=== PATIENT | female | born 1960 ===

== ENCOUNTER 2018-02-13 23:50 | Inpatient (IN) | payer MEDICAID ==
[2018-02-14 01:01] LABS: BASO # 0.1 K/uL (0.0-0.2); BASO % 0.9 % (0.0-2.0); EOS # 0.8 K/uL (0.0-0.7); EOS % 11.5 % (0.0-4.0); HEMOGLOBIN 12.3 g/dL (12.0-16.0); LYMPH # 2.3 K/uL (1.0-4.3); LYMPH % 32.5 % (20.0-40.0); MEAN CELL VOLUME 87.1 fl (81.0-99.0); MEAN CORPUSCULAR HEMOGLOBIN 28.7 pg (27.0-31.0); MEAN CORPUSCULAR HGB CONC 32.9 g/dL (33.0-37.0); MEAN PLATELET VOLUME 7.8 fl (7.2-11.7); MONO # 0.5 K/uL (0.0-0.8); MONO % 7.3 % (0.0-10.0); NEUT # 3.4 K/uL (1.8-7.0); NEUT % 47.8 % (50.0-75.0); RBC 4.31 Mil/uL (3.80-5.20); RED CELL DISTRIBUTION WIDTH 12.9 % (11.5-14.5)
[2018-02-14 01:11] LABS: ACETAMINOPHEN < 10.0 ug/ml (10.0-30.0); BLOOD UREA NITROGEN 9 mg/dl (7-17); CALCIUM 9.5 mg/dL (8.4-10.2); GFR AFRICAN-AMERICAN > 60; GFR NON-AFRICAN AMERICAN > 60; SALICYLATE < 1.0 mg/dl
[2018-02-14 01:14] LABS: SQUAMOUS EPITHIAL 1 /hpf (0-5); URINE BILIRUBIN NEGATIVE (NEGATIVE); URINE BLOOD NEGATIVE (NEGATIVE); URINE CLARITY CLEAR (Clear); URINE COLOR STRAW (YELLOW); URINE GLUCOSE (UA) NEG (Normal); URINE LEUKOCYTE ESTERASE NEG Leu/uL (Negative); URINE PROTEIN NEGATIVE (NEGATIVE); URINE UROBILINOGEN 0.2-1.0 mg/dL (0.2-1.0)
[2018-02-14 01:36] LABS: BARBITURATES, UR NEGATIVE (NEGATIVE); BENZODIAZEPINES, UR NEGATIVE (NEGATIVE); OPIATES, UR NEGATIVE (NEGATIVE); PHENCYCLIDINE, UR NEGATIVE (NEGATIVE)
--- NOTE | 2018-02-14 01:55 | ED PDOC ---
HPI: Psych/Substance Abuse Time Seen by Provider: 02/14/18 00:14 Chief Complaint (Nursing): Psychiatric Evaluation History Per: Patient, Family History/Exam Limitations: no limitations Onset/Duration Of Symptoms: Hrs Current Symptoms Are (Timing): Still Present Additional Complaint(s): Hx of anxiety, depression presenting with depression, family brought her to ER because she has been depressed about losing her insurance, states that she ran out of the house and was wandering the streets and that she occasionally has thoughts of suicide but none now. Family also relates that she vacillates between uncontrollable crying and uncontrollable laughter. Past Medical History Reviewed: Historical Data, Nursing Documentation, Vital Signs Vital Signs: Last Vital Signs Temp 98.2 F 02/13/18 23:55 Pulse 80 02/13/18 23:55 Resp 18 02/13/18 23:55 BP 164/90 H 02/13/18 23:55 Pulse Ox 96 02/13/18 23:55 - Medical History PMH: Anxiety, Depression - Family History Family History: States: Unknown Family Hx - Home Medications Home Medications: Ambulatory Orders Medication Instructions Recorded Unobtainable 02/14/18 - Allergies Allergies/Adverse Reactions: Allergies Allergy/AdvReac Type Severity Reaction Status Date / Time No Known Allergies Allergy Verified 02/13/18 23:53 Review of Systems ROS Statement: Except As Marked, All Systems Reviewed And Found Negative Psych: Positive for: Anxiety, Depression Physical Exam - Reviewed Nursing Documentation Reviewed: Yes Vital Signs Reviewed: Yes - Physical Exam Appears: Positive for: Well (Laughing), Non-toxic, No Acute Distress Head Exam: Positive for: ATRAUMATIC, NORMAL INSPECTION, NORMOCEPHALIC Skin: Positive for: Normal Color, Warm, DRY Eye Exam: Positive for: EOMI, Normal appearance, PERRL ENT: Positive for: Normal ENT Inspection Neck: Positive for: Normal, Painless ROM Cardiovascular/Chest: Positive for: Regular Rate, Rhythm Respiratory: Positive for: CNT, Normal Breath Sounds Gastrointestinal/Abdominal: Positive for: Normal Exam, Soft Back: Positive for: Normal Inspection Extremity: Positive for: Normal ROM Neurologic/Psych: Positive for: Alert, van driver helper II-XII, Oriented, Mood/Affect ( Inapprorpriate laughter ). Negative for: Motor/Sensory Deficits - Laboratory Results Result Diagrams: 02/14/18 00:50 02/14/18 00:50 - ECG O2 Sat by Pulse Oximetry: 96 Pulse Ox Interpretation: Normal Medical Decision Making Medical Decision Makin Patient brought in for anxiety and depression, not currently suicidal -patient with normal vitals, otherwise normal exam -will get labs, crisis 0300 Patient medically cleared Patient accepted to psych by Dr. Vasquez with dx: bipolar disorder Disposition - Clinical Impression Clinical Impression: Bipolar disorder - Disposition Disposition Time: 03:00 Condition: STABLE
[2018-02-14] MEDS ORDERED: Alum-Mag Hydrox-Simethicone Susp (30 mL) PO PRN (03:57)
[2018-02-14] MEDS ORDERED: Magnesium Hydroxide Susp 30 ml UD PO PRN (03:57)
[2018-02-14] MEDS ORDERED: DiphenhydrAMINE 50 mg/ml Inj IM PRN (03:57)
--- NOTE | 2018-02-14 04:14 | PCM.BM ---
<DeniseJo-Annbella Redding - Last Filed: 02/14/18 04:13> Treatment Plan Problems - Problems identified on initial assessmt Altered Thought Process Date Initiated: 02/14/18 Time Initiated: 04:13 Assessment reference: NA Status: Active Altered Sleep Patterns Date Initiated: 02/14/18 Time Initiated: 04:13 Assessment reference: NA Status: Active Treatment assets and liabiliti Patient Assests: cooperative, ADL independent, good support system, negotiates basic needs Patient Liabilities: language/speech - Milieu Protocol Maintain good personal hygiene: daily Encourage regular showers, daily Remind patient to perform daily oral care, daily Assist patient to perform ADL's Conduct patient checks and document Observation sheet: Q15 minutes Maintain personal safety: every shift Educate patient to report safety concerns to staff, every shift Monitor environment for contraband/sharps Medication safety: Monitor for expected outcome, potential side effects: every shift, Assess barriers to learning: every shift, Assess readiness for medication education: every shift <Libra Guidry - Last Filed: 02/18/18 16:38> Treatment assets and liabiliti Patient Assests: adapts well, cooperative, motivated, ADL independent, physically healthy, good support system, negotiates basic needs, good past tx response, cognitively intact (recent memory lapses) Patient Liabilities: financial problems, language/speech (patient is primarily latvian speaking) Family Contact Family involvement: Family/SO is involved Family contact: Patient agrees to contact, Family has been contacted by patient , Telephone contact initiated by staff Family contact name: Ruben (daughter) [phone] Family contacted how many times per week?: 2 Family contact comment: Transit Mechanic placed call to patients daughter (Rani ) to discuss pts progress on 3NP, anticipated discharge of 02/19 and aftercare. Transit Mechanic provided clinical updates regarding pts progress on 3NP and improvement in sxs of depression as evidence by increase in energy, motivation and socialization and organization of thought process. Pts daughter expressed having spoken to patients and having noticed significant improvement in pts mood since admission. Pts daughter expressed concerns regarding pts coping skills, stating "Any little stress and she gets sick again." Transit Mechanic provided psychoeducation regarding importance of aftercare to promote self-awareness, socialization, and improve insight, coping skills and self-esteem. Details regarding aftercare provided. Pts daughter expressed understanding of the above and denied having concerns regarding pts discharge or return home. Ptss daughter reported that pts medicaid was supposed to lapse on 02/16 and inquired how to assist patient in regards to insurance coverage. Transit Mechanic ensured pts daughter that [facility] office will be contacted for further information. Patient scheduled to be picked up by daughter on 02/19 at 530pm. - Goals for Treatment Patient goals for treatment: Patient to continue stabilization on 3NP through medication management and group/supportive therapy to address sxs of depression , improve thought process and eliminate SI. Patient to be encouraged to attend groups regularly to promote self-awareness, saftey, and improve insight, compliance, coping skills and self-esteem. Patient to be provided with referral for appropriate level of aftercare to reduce risk of future hospitalizations and ensure safety in the community. Discharge/Continuing Care - Education Needs Education Needs: Family Medication, Family Coping Skills, Family Community resources, Family Aftercare Safety Plan, Patient Medication, Patient Coping Skills, Patient Community resources, Patient Aftercare Safety Plan - Discharge Discharge Criteria: Tolerates medication w/o severe side effects, Free of Suicidal thoughts, Normal sleep pattern, Ability to care for self, Reduction of target symptoms, Other (improvement in organization of thoughts ; improvement in insight) Discharge to:: Home, With Family - Treatment Team Participation Patient/Family/SO Statement: 02/18/18 16:40 Patient was invited to tx team this morning to discuss progress on 3NP and discharge planning. Pt. reported significant improvement in sxs of depression as evidence by increase in energy and better sleep and appetite. Pt. presents with brighter affect and is better able to tolerate discussion regarding progress on 3NP and tx goals than upon admission. Psychomotor skills appear less impaired and responses significantly more spontaneous. Pt. denied SI/HI/AH/ VH. Pt. visible on 3NP and observed socializing appropriately with select peers. Patient agreeable to referral to [facility] and expressed feeling comfortable with a possible discharge of 02/19. Discussed with Family/SO: Yes Was Patient/Family/SO present at Treatment Team Meeting: Yes <Dariel Azar - Last Filed: 02/19/18 08:39> - Diagnosis (1) Depression Status: Acute Interventions: psychotherapy, pharmacotherapy 02/19/18 08:39
[2018-02-14 06:39] VITALS: O2SAT 96
[2018-02-14 07:15] LABS: T4 9.25 ug/dl (5.5-11.0)
--- NOTE | 2018-02-14 09:37 | CARD ---
APPROVED REPORT EKG Measurement Heart [id number] <Conclusion> Sinus rhythm with 1st degree AV block Otherwise normal ECG
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
--- NOTE | 2018-02-14 17:53 | CP.PCM.CON ---
History of Present Illness - History of Present Illness History of Present Illness: 57 yo female with no significant PMH admitted to psyche unit because of worsening depression. Review of Systems - Review of Systems All systems: reviewed and no additional remarkable complaints except (aside from those mentioned above, 12 points system review were negative by me) Past Patient History - Tetanus Immunizations Tetanus Immunization: Unknown - Past Social History Smoking Status: Never Smoked Chewing Tobacco Use: No Cigar Use: No Alcohol: None Drugs: Denies - CARDIAC Hx Cardiac Disorders: No - PULMONARY Hx Respiratory Disorders: No - NEUROLOGICAL Hx Neurological Disorder: No - HEENT Hx HEENT Problems: No - RENAL Hx Chronic Kidney Disease: No - ENDOCRINE/METABOLIC Hx Endocrine Disorders: No - HEMATOLOGICAL/ONCOLOGICAL Hx Blood Disorders: No Hx Hepatitis C: No - INTEGUMENTARY Hx Dermatological Problems: No - MUSCULOSKELETAL/RHEUMATOLOGICAL Hx Musculoskeletal Disorders: No - GASTROINTESTINAL Hx Gastrointestinal Disorders: No - GENITOURINARY/GYNECOLOGICAL Hx Genitourinary Disorders: No - PSYCHIATRIC Hx Anxiety: Yes Hx Depression: Yes - SURGICAL HISTORY Hx Surgeries: Yes Hx Hysterectomy: Yes - ANESTHESIA Hx Anesthesia: Yes Hx Anesthesia Reactions: No Meds Allergies/Adverse Reactions: Allergies Allergy/AdvReac Type Severity Reaction Status Date / Time No Known Allergies Allergy Verified 02/13/18 23:53 - Medications Medications: Current Medications Acetaminophen (Tylenol 325mg Tab) 650 mg PO Q4 PRN PRN Reason: pain level 4-7 Al Hydrox/Mg Hydrox/Simethicone (Maalox Plus 30 Ml) 30 ml PO Q4 PRN PRN Reason: Dyspepsia Diphenhydramine HCl (Benadryl) 50 mg IM Q6 PRN PRN Reason: Extrapyramidal S/S Unable PO Diphenhydramine HCl (Benadryl) 50 mg PO Q6 PRN PRN Reason: Extrapyramidal Symptoms Diphenhydramine HCl (Benadryl) 50 mg PO HS PRN PRN Reason: Sleep Haloperidol (Haldol) 5 mg PO Q4 PRN PRN Reason: Agitation Haloperidol Lactate (Haldol) 5 mg IM Q4 PRN PRN Reason: Agitation, Unable to Take PO Lorazepam (Ativan) 1 mg IM Q8 PRN PRN Reason: Anxiety/Agitation,Unable PO Lorazepam (Ativan) 1 mg PO Q8 PRN PRN Reason: Anxiety/Agitation Magnesium Hydroxide (Milk Of Magnesia) 30 ml PO HS PRN PRN Reason: Constipation Mirtazapine (Remeron) 7.5 mg PO HS LUDIVINA Risperidone (Risperdal Oral Soln) 0.5 mg PO DAILY LUDIVINA Last Admin: 02/14/18 17:49 Dose: 0.5 % Physical Exam - Constitutional Appears: No Acute Distress - Head Exam Head Exam: ATRAUMATIC - Eye Exam Eye Exam: absent: Scleral icterus - ENT Exam ENT Exam: Mucous Membranes Moist - Neck Exam Neck exam: Negative for: Meningismus - Respiratory Exam Respiratory Exam: absent: Rales, Rhonchi, Wheezes, Respiratory Distress - Cardiovascular Exam Cardiovascular Exam: REGULAR RHYTHM, +S1, +S2 - GI/Abdominal Exam GI & Abdominal Exam: Soft. absent: Tenderness - Rectal Exam Rectal Exam: Deferred - Extremities Exam Extremities exam: Negative for: calf tenderness, pedal edema - Back Exam Back exam: NORMAL INSPECTION - Neurological Exam Neurological exam: Alert, Oriented x3 - Psychiatric Exam Psychiatric exam: Normal Affect - Skin Skin Exam: Dry, Intact Results - Vital Signs Recent Vital Signs: Last Vital Signs Temp 97.7 F 02/14/18 10:29 Pulse 66 02/14/18 10:29 Resp 18 02/14/18 10:29 BP 144/76 02/14/18 10:29 Pulse Ox 96 02/14/18 06:39 - Labs Result Diagrams: 02/14/18 00:50 02/14/18 00:50 Labs: Laboratory Results - last 24 hr 02/14/18 02/14/18 02/14/18 00:50 00:50 00:50 WBC 7.0 RBC 4.31 Hgb 12.3 Hct 37.5 MCV 87.1 MCH 28.7 MCHC 32.9 L RDW 12.9 Plt Count 254 MPV 7.8 Neut % (Auto) 47.8 L Lymph % (Auto) 32.5 [place] % (Auto) 7.3 Eos % (Auto) 11.5 H Baso % (Auto) 0.9 Neut # (Auto) 3.4 Lymph # (Auto) 2.3 [place] # (Auto) 0.5 Eos # (Auto) 0.8 H Baso # (Auto) 0.1 Sodium 142 Potassium 4.0 Chloride 107 Carbon Dioxide 24 Anion Gap 15 BUN 9 Creatinine 0.8 Est GFR ( Amer) > 60 Est GFR (Non-Af Amer) > 60 Random Glucose 102 Hemoglobin A1c Calcium 9.5 Triglycerides Cholesterol LDL Cholesterol Direct HDL Cholesterol Thyroxine (T4) TSH 3rd Generation Urine Color Urine Clarity Urine pH Ur Specific [place] Urine Protein Urine Glucose (UA) Urine Ketones Urine Blood Urine Nitrate Urine Bilirubin Urine Urobilinogen Ur Leukocyte Esterase Urine RBC (Auto) Urine Microscopic WBC Ur Squamous Epith Cells Salicylates < 1.0 Urine Opiates Screen Urine Methadone Screen Acetaminophen < 10.0 L Ur Barbiturates Screen Ur Phencyclidine Scrn Ur Amphetamines Screen U Benzodiazepines Scrn U Oth Cocaine Metabols U Cannabinoids Screen Alcohol, Quantitative < 10 02/14/18 02/14/18 02/14/18 01:06 01:06 06:20 WBC RBC Hgb Hct MCV MCH MCHC RDW Plt Count MPV Neut % (Auto) Lymph % (Auto) [place] % (Auto) Eos % (Auto) Baso % (Auto) Neut # (Auto) Lymph # (Auto) [place] # (Auto) Eos # (Auto) Baso # (Auto) Sodium Potassium Chloride Carbon Dioxide Anion Gap BUN Creatinine Est GFR ( Amer) Est GFR (Non-Af Amer) Random Glucose Hemoglobin A1c Calcium Triglycerides 101 Cholesterol 231 H LDL Cholesterol Direct 140 H HDL Cholesterol 46 Thyroxine (T4) 9.25 TSH 3rd Generation 2.01 Urine Color Straw Urine Clarity Clear Urine pH 6.0 Ur Specific [place] 1.005 Urine Protein Negative Urine Glucose (UA) Neg Urine Ketones Negative Urine Blood Negative Urine Nitrate Negative Urine Bilirubin Negative Urine Urobilinogen 0.2-1.0 Ur Leukocyte Esterase Neg Urine RBC (Auto) < 1 Urine Microscopic WBC 1 Ur Squamous Epith Cells 1 Salicylates Urine Opiates Screen Negative Urine Methadone Screen Negative Acetaminophen Ur Barbiturates Screen Negative Ur Phencyclidine Scrn Negative Ur Amphetamines Screen Negative U Benzodiazepines Scrn Negative U Oth Cocaine Metabols Negative U Cannabinoids Screen Negative Alcohol, Quantitative 02/14/18 06:20 WBC RBC Hgb Hct MCV MCH MCHC RDW Plt Count MPV Neut % (Auto) Lymph % (Auto) [place] % (Auto) Eos % (Auto) Baso % (Auto) Neut # (Auto) Lymph # (Auto) [place] # (Auto) Eos # (Auto) Baso # (Auto) Sodium Potassium Chloride Carbon Dioxide Anion Gap BUN Creatinine Est GFR ( Amer) Est GFR (Non-Af Amer) Random Glucose Hemoglobin A1c 5.1 Calcium Triglycerides Cholesterol LDL Cholesterol Direct HDL Cholesterol Thyroxine (T4) TSH 3rd Generation Urine Color Urine Clarity Urine pH Ur Specific [place] Urine Protein Urine Glucose (UA) Urine Ketones Urine Blood Urine Nitrate Urine Bilirubin Urine Urobilinogen Ur Leukocyte Esterase Urine RBC (Auto) Urine Microscopic WBC Ur Squamous Epith Cells Salicylates Urine Opiates Screen Urine Methadone Screen Acetaminophen Ur Barbiturates Screen Ur Phencyclidine Scrn Ur Amphetamines Screen U Benzodiazepines Scrn U Oth Cocaine Metabols U Cannabinoids Screen Alcohol, Quantitative Assessment & Plan (1) Depression Status: Acute Comment: psyche is managing
--- NOTE | 2018-02-15 17:22 | PCM.PYCHPN ---
Psychiatric Progress Note - Psychiatric Progress Note Patient seen today, length of contact: pt evaluated discussed with team chart reviewed Patient Chief Complaint: I feel down and tired Problems Identified/Issues Discussed: pt on evaluation with treatment team presenting with depressed mood and affect , guarded paranoid, limiting herself to her room , needs lot of encouragement to attend groups,, reported low energy, anhedonia, improved sleep with remeron, denied perceptual disturbances although at times presenting as internaly preoccupied denied any current active suicidal ideation or plan on the unit, no reported side effects of medications Medical Problems: hx of two suicidal attempts ten years ago in DSM 5 Symptoms Update: major depression with psychotic features Medication Change: No Medical Record Reviewed: Yes Mental Status Examination - Cognitive Function Orientation: Person, Place Attention: Poor Concentration: Poor Association: Loose Fund of Knowledge: Poor Decription of patient's judgement and insights: poor - Mood Mood: Depressed, Anxious - Affect Affect: Constricted, Depressed - Speech Speech: Soft - Formal Thought Process Formal Thought Process: Paranoia, Loosening of associations Psychotic Thoughts and Behaviors: internally preoccupied, denied command hallucinations - Suicidal Ideation Suicidal Ideation: No - Homicidal Ideation Homicidal Ideation: No Goal/Treatment Plan - Goal/Treatment Plan Need for Continued Stay: Severe depression anxiety, Discharge may exacerbated symptoms, Failed transitioning Progress Toward Problem(s) and Goals/Treatment Plan: remron 7.5mg qhs risperidone 0.5mg daily CBT group and supportive therapy
[2018-02-15] MEDS: Risperidone M tab 0.5MG PO SCH (23:16)
--- NOTE | 2018-02-16 11:59 | PCM.PYCHPN ---
Psychiatric Progress Note - Psychiatric Progress Note Patient seen today, length of contact: pt evaluated discussed with team chart reviewed Patient Chief Complaint: pt has been still very paranoid and depressed and minimise her depression.pt still has poor insight regarding her psychotic behavior and need further stabilization. Medication Change: No Medical Record Reviewed: Yes Mental Status Examination - Cognitive Function Orientation: Person, Place Attention: Poor Concentration: Poor Association: Loose Fund of Knowledge: Poor - Mood Mood: Depressed, Anxious - Affect Affect: Constricted, Depressed - Speech Speech: Soft - Formal Thought Process Formal Thought Process: Paranoia, Loosening of associations - Suicidal Ideation Suicidal Ideation: No - Homicidal Ideation Homicidal Ideation: No Goal/Treatment Plan - Goal/Treatment Plan Need for Continued Stay: Severe depression anxiety, Discharge may exacerbated symptoms, Failed transitioning Progress Toward Problem(s) and Goals/Treatment Plan: will ontinue to stabilize pt with therapy and therapy and meds. d/c plans as per dr lucero.
[2018-02-16] MEDS: Risperidone M tab 0.5MG PO SCH (21:26)
[2018-02-17] MEDS: Risperidone M tab 0.5MG PO SCH (21:27)
--- NOTE | 2018-02-18 14:48 | PCM.PYCHPN ---
Psychiatric Progress Note - Psychiatric Progress Note Patient seen today, length of contact: pt evaluated discussed with team chart reviewed Patient Chief Complaint: I feel better Problems Identified/Issues Discussed: pt evaluated with treatment team, presenting with better mood, brighter affect, better groomed, reported improved sleep and appetite, thought form more coherent and goal directed, ,no reported side effects of medications, compliant with treatment and attending groups reported clearing off of perceptual disturbances, denied side effects of medications Medical Problems: hx of two suicidal attempts ten years ago in DSM 5 Symptoms Update: major depression Medication Change: No Medical Record Reviewed: Yes Mental Status Examination - Cognitive Function Orientation: Person, Place Concentration: WNL Association: WN Fund of Knowledge: Poor Decription of patient's judgement and insights: partial insight fair judgment - Mood Mood: Depressed, Anxious - Affect Affect: Constricted, Depressed - Speech Speech: Soft - Formal Thought Process Formal Thought Process: Circumstantial Psychotic Thoughts and Behaviors: pt reported no current perceptual disturbances - Suicidal Ideation Suicidal Ideation: No - Homicidal Ideation Homicidal Ideation: No Goal/Treatment Plan - Goal/Treatment Plan Need for Continued Stay: Severe depression anxiety, Discharge may exacerbated symptoms, Failed transitioning Progress Toward Problem(s) and Goals/Treatment Plan: remron 7.5mg qhs discontinue risperidone 0.5mg daily CBT group and supportive therapy
[2018-02-19 09:23] VITALS: PULSE 81
--- NOTE | 2018-02-19 12:38 | PCM.PYCHDC ---
Mental Status Examination - Mental Status Examination Orientation: Person, Place, Situation Mood: Neutral Affect: Broad Speech: Appropriate Attention: WNL Concentration: WNL Association: WNL Fund of Knowledge: WNL Formal Thought Process: No Impairment Description of patient's judgement and insight: partial insight fair judgment Psychotic Thoughts and Behaviors: pt reported no current perceptual disturbances Suicidal Ideation: No Current Homicidal Ideation?: No Discharge Summary - Discharge Note Reason for Hospitalization: 57 ys old female with previous psychaitric diagnosis of depression not currently in treatment, brought to ER by police as pt rdisappeared from daughter house and has been wondering pt reported increasingly depressed due to financial and medical problem, poor sleep , poor appetite and anhedonia, lost job due to paranoid delusions towards employer , on day of evaluation started wandering as she was having suicidal ideation on unit passive suicidal ideation without plan continues to be guarded and paranoid denied homocidal ideation reported non command auditory hallucinations , Consultations:: List each consultation separately and include: 1. Reason for request. 2. Findings. 3. Follow-up Summary of Hospital Course include:: 1. Description of specific treatment plan utilized for patients during their course of treatmen. 2. Summarize the time- course for resolution of acute symptoms and/or regressed behaviors. 3. Describe issues identified and worked on during hospitalization. 4. Describe medication utilized. 5. Describe medical problems identified and treated. 6. Reassessment of suicide risk Summary of Hospital Course: pt on admission presented with depressed mood and affect reported non command auditory hallucinations, poor sleep and poor appetite pt was stated on remeron 7.5mg qhs and risperidone 0.5mg daily pt was compliant with medications, attended groups, no reported side effects of medications on discharge mental status was stable, denied suicidal or homicidal ideation reported clearing off of the auditory hallucinations follow up arranged at [facility] outpatient - Diagnosis (1) Depression Current Visit: Yes Status: Acute - Final Diagnosis (DSM 5) Condition upon Discharge: STABLE DSM 5: major depression recurrent severe with psychotic features Disposition: HOME/ ROUTINE Follow-up Treatment Plan: remron 7.5mg qhs discontinue risperidone 0.5mg daily CBT group and supportive therapy Prescriptions/Medication Reconciliation: Mirtazapine [Remeron] 7.5 mg PO HS 30 Days #30 tab - Antipsychotic Medications Pt discharged on 2 or more routine antipsychotic medications: No
[2018-02-19 17:44] VITALS: BP 137/78; RESP 17; TEMP 97.5
== END 2018-02-19 18:14 | disposition home or self-care (01) | DRG 430 ==
LOC: H.ER 23:50 → H.ERHOLD 02-14 02:05 → H.PSYCH 02-14 03:52
PROVIDERS: ADMIT Psychiatry & Neurology Psychiatry; ATTEND Psychiatry & Neurology Psychiatry
PROC: GZHZZZZ Group Psychotherapy (ICD-10-PCS; principal; 2018-02-14)
PROC: GZ58ZZZ Individual Psychotherapy, Cognitive-Behavioral (ICD-10-PCS; 2018-02-14)
DX: F33.3 Major depressive disorder, recurrent, severe with psychotic symptoms (principal); F41.9 Anxiety disorder, unspecified; R45.851 Suicidal ideations